=== PATIENT | female | born 1970 | race Caucasian/White ===

== ENCOUNTER 2017-08-28 07:05 | Inpatient (IN) | payer BC ==
[~2017-08-28] VITALS: Ht 170.2 cm; Wt 52.8 kg
[~2017-08-28 07:05] MED LIST: FIBER GUMMIES1 EACH PO; OXYCODONE HCL15 MG PO; OXYCONTIN30 MG PO; SLEEP AID25 M1 PO; WOMEN'S DAILY1 EAC2 PO
[2017-08-28 07:38] VITALS: BP 100/65
[2017-08-28 17:08] VITALS: BP 99/61
[2017-08-28 20:21] VITALS: BP 100/55
[2017-08-28 23:37] VITALS: BP 102/57
[2017-08-29 15:05] VITALS: BP 99/57
[2017-08-29 23:14] VITALS: BP 86/49
[2017-08-29 23:27] VITALS: BP 94/52
[2017-08-30 10:07] VITALS: BP 110/62
[2017-08-30 17:38] VITALS: BP 106/60
[2017-08-30 23:51] VITALS: BP 87/55
[2017-08-31 09:38] VITALS: BP 100/61
[2017-08-31 17:04] VITALS: BP 107/63
[2017-08-31 23:44] VITALS: BP 87/55
[2017-09-01 03:10] VITALS: BP 94/56
[2017-09-01 08:18] VITALS: BP 132/76
[2017-09-01 11:24] VITALS: BP 96/52
[2017-09-01 15:41] VITALS: BP 97/59
[2017-09-01 23:45] VITALS: BP 90/54
[2017-09-02 07:49] VITALS: BP 100/59
[2017-09-02] MEDS ORDERED: GABAPENTIN100 MG PO (11:46)
[2017-09-02] MEDS ORDERED: ZANAFLEX4 M1 PO (15:24)
[2017-09-02] MEDS ORDERED: COLACE100 MG PO (15:24)
[2017-09-02] MEDS ORDERED: DILAUDID4 MG PO (15:25)
[2017-09-02] MEDS ORDERED: ZOFRAN4 MG/2 ML IV (15:26)
[2017-09-02] MEDS ORDERED: DURAGESIC50 MCG TD (15:26)
[2017-09-02] MEDS ORDERED: ATIVAN2 MG/1 ML IV (15:28)
[2017-09-02] MEDS ORDERED: VALIUM10 MG PO (15:28)
[2017-09-02] MEDS ORDERED: DULCOLAX5 MG PO (15:29)
[2017-09-02] MEDS ORDERED: TYLENOL REGULA325 MG PO (15:30)
== END 2017-09-02 15:05 | DRG 472 ==
LOC: SDC 07:05 → 3EAST 14:14 → 2SOUTH 14:14 → ENRESERV 14:24 → SDC 16:30 → 3EAST 16:35
DX: M96.0 Pseudarthrosis after fusion or arthrodesis (principal); M54.13 Radiculopathy, cervicothoracic region; T84.216A Breakdown (mechanical) of internal fixation device of vertebrae, initial encounter; Y84.8 Other medical procedures as the cause of abnormal reaction of the patient, or of later complication, without mention of misadventure at the time of the procedure; G89.29 Other chronic pain; M79.602 Pain in left arm; M79.601 Pain in right arm; R53.1 Weakness; I34.1 Nonrheumatic mitral (valve) prolapse; Z98.1 Arthrodesis status; F32.9 Major depressive disorder, single episode, unspecified; Z79.891 Long term (current) use of opiate analgesic; F41.9 Anxiety disorder, unspecified
CPT/HCPCS: 72020; 76000; 86850; 86900; 86901; 94799; 97530 GP; C1713; J0131; J0330; J0690; J1100; J1170; J1580; J2060; J2250; J2270; J2405; J3010; J3370; J3480; Q0175

== ENCOUNTER 2017-09-02 09:41 | Inpatient (IN) | payer BC ==
[~2017-09-02] VITALS: Ht 170.2 cm; Wt 63.2 kg
[2017-09-02] MEDS ORDERED: GABAPENTIN100 MG PO (11:46)
[2017-09-02] MEDS ORDERED: ZANAFLEX4 M1 PO (15:24)
[2017-09-02] MEDS ORDERED: COLACE100 MG PO (15:24)
[2017-09-02] MEDS ORDERED: DILAUDID4 MG PO (15:25)
[2017-09-02] MEDS ORDERED: ZOFRAN4 MG/2 ML IV (15:26)
[2017-09-02] MEDS ORDERED: DURAGESIC50 MCG TD (15:26)
[2017-09-02] MEDS ORDERED: ATIVAN2 MG/1 ML IV (15:28)
[2017-09-02] MEDS ORDERED: VALIUM10 MG PO (15:28)
[2017-09-02] MEDS ORDERED: DULCOLAX5 MG PO (15:29)
[2017-09-02] MEDS ORDERED: TYLENOL REGULA325 MG PO (15:30)
[2017-09-02 15:31] VITALS: BP 112/66
[2017-09-02 23:55] VITALS: BP 108/68
[2017-09-03 06:00] VITALS: BP 107/67
[2017-09-03 07:08] LABS: HEMATOCRIT 35.3 % (36.0-46.0); MCH 29.1 PG (29.0-34.0); MCHC 32.3 G/DL (30.0-36.0); MCV 90.1 FL (83-99); MEAN PLAT.VOLUME 10.2 uM^3 (9.5-12.4); PLATELET COUNT 253 K/uL (156-360); RBC DIS.WIDTH-CV 11.9 % (11.8-14.6); RBC DIS.WIDTH-SD 38.8 % (39-53); RED BLOOD COUNT 3.92 M/uL (3.80-5.20); WHITE BLOOD COUNT 6.2 K/uL (4.1-10.2)
[2017-09-03 07:37] LABS: ALKALINE PHOSPHATASE 66 IU/L (3-129); ANION GAP 7 MEQ/L (2-14); CHLORIDE 103 MEQ/L (99-109); GFR ESTIMATE (CALCULATED) > 59 mL/min/; GLUCOSE 95 mg/dL (70-99); POTASSIUM 4.2 MEQ/L (3.7-5.4); SAMPLE HEMOLYSIS CHECK 0; SAMPLE ICTERIC CHECK 0; SAMPLE LIPEMIA CHECK 0; SODIUM 141 MEQ/L (136-147); TOTAL BILIRUBIN 0.3 MG/DL (0.0-1.0); UREA NITROGEN (BUN) 10 mg/dL (9-23)
[2017-09-03 16:06] VITALS: BP 108/67
[2017-09-04 04:35] VITALS: BP 102/61
[2017-09-04 16:00] VITALS: BP 86/58
[2017-09-05 05:19] VITALS: BP 90/52
[2017-09-05 15:51] VITALS: BP 97/66
[2017-09-06 05:06] VITALS: BP 97/60
[2017-09-06] MEDS ORDERED: OXYCODONE HCL15 MG PO (11:22)
[2017-09-06] MEDS ORDERED: BACLOFEN10 MG PO (11:22)
[2017-09-06] MEDS ORDERED: FENTANYL1 EAC1 TD (11:22)
[2017-09-06] MEDS ORDERED: GABAPENTIN100 MG PO (11:22)
[2017-09-06 15:26] VITALS: BP 95/52
[2017-09-07 06:02] VITALS: BP 104/58
[2017-09-07 15:09] VITALS: BP 96/57
[2017-09-08 05:57] VITALS: BP 108/60
== END 2017-09-08 10:15 | disposition home health service (06) | DRG 949 ==
LOC: 3WEST 09:41 → ENPENDDIS 09-08 → 3WEST 09-08 10:15
PROVIDERS: Physical Medicine & Rehabilitation Pain Medicine
PROC: F07M0ZZ Range of Motion and Joint Mobility Treatment of Musculoskeletal System - Whole Body (ICD-10-PCS; principal; 2017-09-02)
DX: Z48.89 Encounter for other specified surgical aftercare (principal); R26.2 Difficulty in walking, not elsewhere classified; Z98.1 Arthrodesis status; Z87.891 Personal history of nicotine dependence; F41.9 Anxiety disorder, unspecified; D62 Acute posthemorrhagic anemia; E77.8 Other disorders of glycoprotein metabolism; B37.3 Candidiasis of vulva and vagina; G43.909 Migraine, unspecified, not intractable, without status migrainosus; G89.29 Other chronic pain; M96.0 Pseudarthrosis after fusion or arthrodesis
CPT/HCPCS: 80053; 85027; 97110 GO; 97530 GP